=== PATIENT | female | born 1990 | race Caucasian/White ===

== ENCOUNTER 2016-06-24 22:10 | Emergency (ER) | payer SELFPAY ==
[~2016-06-24] VITALS: Ht 170.2 cm; Wt 125.2 kg
[2016-06-24 22:10] VITALS: Ht 170.2 cm; Wt 125.2 kg
[~2016-06-24 22:10] MED LIST: DESO1TAB4 PO; FLUO20CA30 PO
--- OUTSIDE RECORDS SUMMARY | 2016-06-24 22:13 | XMS REPORT | Referral Summary ---
Author Author [facility] Organization [facility] Address Unknown Phone Unavailable Care Team Providers Care Maintenance Journeyman Name Role Phone Torrie Silvestre Primary Care Physician [phone] Encounter [facility] [id number] Date(s): 11/30/14 - 11/30/14 [address] [facility] [address] [facility] [address] [place], [place] [address] Discharge Diagnosis: Chronic daily headache Discharge Disposition: 01-Home or Self Care Attending Physician: Juan Jose Correa MD Admitting Physician: Juan Jose Correa MD Referring Physician: Buffy Silvestre MD Vital Signs Most recent to 1 oldest [Reference Range]: Peripheral Pulse 80 bpm Rate [60-100 bpm] (11/30/14 12:54 PM) Blood Pressure 122/88 mmHg [90-140/60-90 mmHg] (11/30/14 12:54 PM) Problem List Condition Effective Dates Status Health Status Informant Anemia(Confirmed) Active Anxiety(Confirmed) Active Depression(Confirmed Active ) Ear Active infection(Confirmed) Migraine Active headache(Confirmed) Overweight(Confirmed Active ) Peptic Active ulcer(Confirmed) Allergies, Adverse Reactions, Alerts No Known Medication Allergies Medications Apri 0.15 mg-0.03 mg oral tablet 1 tabs, Oral, Daily, # 28 tabs, 0 Refill(s), other reason (Rx) Start Date: 06/28/14 Status: Ordered Diamox Sequels 500 mg oral capsule, extended release 500 mg 1 caps, Oral, BID, # 60 caps, 11 Refill(s), Pharmacy: [id number], 1 caps Oral BID,x30 days Start Date: 12/13/14 Stop Date: 12/08/15 Status: Ordered FLUoxetine 20 mg oral capsule See Instructions, 1 caps Oral Daily,Instr:New order to replace previous order., # 30 caps, 2 Refill(s), eRx: [id number], 1 caps Oral Daily,Instr: New order to replace previous order. Start Date: 08/08/14 Status: Ordered Results No data available for this section Immunizations Vaccine Date Refusal Reason tetanus/diphth/pertuss (Tdap) adult/adol 10/19/10 hepatitis B pediatric vaccine 02/13/98 hepatitis B pediatric vaccine 09/14/97 hepatitis B pediatric vaccine 09/24/95 influenza virus vaccine, live 12/02/12 influenza virus vaccine, live 03/25/12 measles/mumps/rubella virus vaccine 09/04/93 measles/mumps/rubella virus vaccine 02/04/90 varicella virus vaccine 09/14/97 Procedures Procedure Date Related Diagnosis Body Site Tonsillectomy [place] teeth removed Social History Social History Type Response Smoking Status Never smoker Assessment and Plan Extracted from: Title: Office Visit Note Author: Reece Pryor MD Date: 11/30/14 Assessment/Plan Chronic daily headache 24 yo RH female with h/o episodic headaches since childhood presents for worsening headaches into chronic daily headache since apr with associated blurry vision, diplopia and wave sensation in R ear. Patient may have a multifactorial component of headaches, chronic migraines, IIH +/- medication overuse headaches. Plan: -LP for opening pressure. Discussed with patient potential adverse effects of procedure including but not limited to post-lp headache, infection, hemorrhage, herniation. -Start Migrelief bid for now for chronic migraines. Will decide on further Preventive headache medication pending LP results - I emphasized on the importance of good sleep, preventing triggers, not missing meals,avoid drastic changes in schedule, regular exercise, weight loss and healthy diet. -May consider sleep study in the future. Ordered: Cell Count w/ Diff CSF Glucose CSF Protein CSF XR Fluoro Guidance Needle Loc Spine
--- OUTSIDE RECORDS SUMMARY | 2016-06-24 22:13 | XMS REPORT | Referral Summary ---
Author Organization Unknown Address Unknown Phone Unavailable Care Team Providers Care Systems Planner Name Role Phone Torrie Silvestre Primary Care Physician [phone] Encounter [facility] Date(s): 06/28/14 - 06/28/14 [facility] [address] [place] [address] [place] [id number] Discharge Diagnosis: Fatigue Discharge Diagnosis: Headache Discharge Disposition: Home or Self Care Attending Physician: Ronit Chen APRN Admitting Physician: Ronit Chen APRN Vital Signs Most recent to 1 oldest [Reference Range]: Temperature Tympanic 37.1 degC [36.6-38.1 degC] (06/28/14 10:18 AM) Peripheral Pulse 72 bpm Rate [60-100 bpm] (06/28/14 10:18 AM) Blood Pressure 134/78 mmHg [90-140/60-90 mmHg] (06/28/14 10:18 AM) Problem List Condition Effective Dates Status Health Status Informant Anemia(Confirmed) Active Anxiety(Confirmed) Active Depression(Confirmed Active ) Ear Active infection(Confirmed) Migraine Active headache(Confirmed) Overweight(Confirmed Active ) Peptic Active ulcer(Confirmed) Allergies, Adverse Reactions, Alerts No Known Medication Allergies Medications Apri 0.15 mg-0.03 mg oral tablet 1 tabs, Oral, Daily, # 28 tabs, 0 Refill(s), other reason (Rx) Start Date: 06/28/14 Status: Ordered busPIRone 15 mg oral tablet 1 tabs, Oral, BID, # 60 tabs, 0 Refill(s), other reason (Rx) Start Date: 06/28/14 Status: Ordered FLUoxetine 20 mg oral tablet See Instructions, 1/2 tabs Oral Daily FOR 1 WEEK THEN 1 TABLET ORAL DAILY, # 30 tabs, 1 Refill(s), Pharmacy: [facility] #[id number], 1/2 tabs Oral Daily FOR 1 WEEK THEN 1 TABLET ORAL DAILY Special Instructions: 1/2 tabs Oral Daily FOR 1 WEEK THEN 1 TABLET ORAL DAILY Start Date: 06/28/14 Status: Ordered Results No data available for this section Immunizations Vaccine Date Refusal Reason tetanus/diphth/pertuss (Tdap) adult/adol 10/19/10 hepatitis B pediatric vaccine 02/13/98 hepatitis B pediatric vaccine 09/14/97 hepatitis B pediatric vaccine 09/24/95 influenza virus vaccine, live 12/02/12 influenza virus vaccine, live 03/25/12 measles/mumps/rubella virus vaccine 09/04/93 measles/mumps/rubella virus vaccine 02/04/90 varicella virus vaccine 09/14/97 Procedures No data available for this section Social History Social History Type Response Smoking Status Never smoker Assessment and Plan No data available for this section
--- OUTSIDE RECORDS SUMMARY | 2016-06-24 22:13 | XMS REPORT | Referral Summary ---
Author Author [facility] Organization [facility] Address Unknown Phone Unavailable Care Team Providers Care Master Automotive Technician Name Role Phone Torrie Silvestre Primary Care Physician [phone] Encounter [facility] [id number] Date(s): 07/13/14 - 07/13/14 [facility] [address] [place], [place] [address] Discharge Diagnosis: ACUTE SINUSITIS, UNSPECIFIED Discharge Diagnosis: Cyst of maxillary sinus Discharge Diagnosis: Family history of colorectal cancer Discharge Diagnosis: Stomatitis and mucositis, unspecified Discharge Diagnosis: Pulsatile tinnitus Discharge Diagnosis: Blurred vision Discharge Disposition: 01-Home or Self Care Attending Physician: Zak Anderson MD Admitting Physician: Zak Anderson MD Referring Physician: Buffy Silvestre MD Vital Signs No data available for this section Problem List Condition Effective Dates Status Health [...] BID, # 60 caps, 11 Refill(s), Pharmacy: [id number], 1 caps Oral BID,x30 days Start Date: 12/13/14 Stop Date: 12/08/15 Status: Ordered FLUoxetine 20 mg oral capsule See Instructions, 1 caps Oral Daily,Instr:New order to replace previous order., # 30 caps, 2 Refill(s), eRx: [id number], 1 caps Oral Daily,Instr: New [...] Procedures Procedure Date Related Diagnosis Body Site Nasal endoscopy, diagnostic, unilateral or 07/13/14 bilateral (separate procedure) Tonsillectomy [place] teeth removed Social History Social History Type Response Smoking Status Never smoker Assessment and Plan No data available for this section
--- OUTSIDE RECORDS SUMMARY | 2016-06-24 22:13 | XMS REPORT | Referral Summary ---
Author Author [facility] Organization [facility] Address Unknown Phone Unavailable Care Team Providers Care Tube Drawing Supervisor Name Role Phone Torrie Silvestre Primary Care Physician [phone] Encounter [facility] [id number] Date(s): 07/13/14 - 07/13/14 [facility] [address] [address] [place], [place] [address] Discharge Diagnosis: ACUTE SINUSITIS, [...] BID, # 60 caps, 11 Refill(s), Pharmacy: [id number], 1 caps Oral BID,x30 days Start Date: 12/13/14 Stop Date: 12/08/15 Status: Ordered FLUoxetine 20 mg oral capsule See Instructions, 1 caps Oral Daily,Instr:New order to replace previous order., # 30 caps, 2 Refill(s), [facility]Rx: [facility], 1 caps Oral Daily,Instr: New [...] unilateral or 07/13/14 bilateral (separate procedure) Tonsillectomy [place] teeth removed Social History Social History Type Response Smoking Status Never smoker Assessment and Plan No data available for this section
--- OUTSIDE RECORDS SUMMARY | 2016-06-24 22:13 | XMS REPORT | Referral Summary ---
Author Author [facility] Organization [facility] Address Unknown Phone Unavailable Care Team Providers Care Lowerator Operator Name Role Phone Torrie Silvestre Primary Care Physician [phone] Encounter [facility] [id number] Date(s): 11/30/14 - 11/30/[address] [facility] [address] [address] [facility] [address] [place], [place] [address] Discharge Diagnosis: Chronic daily headache Discharge [...] 06/28/14 Status: Ordered FLUoxetine 20 mg oral capsule See Instructions, 1 caps Oral Daily,Instr:New order to replace previous order., # 30 caps, 2 Refill(s), eRx: [facility], 1 caps Oral Daily,Instr: New order to [...] Procedure Date Related Diagnosis Body Site Tonsillectomy [place] teeth removed Social History Social History Type [...]
--- OUTSIDE RECORDS SUMMARY | 2016-06-24 22:13 | XMS REPORT | Referral Summary ---
Author Author [facility] [place] Organization [facility] [place], [facility] Address Unknown Phone Unavailable Care Team Providers Care Human Factors Engineer Name Role Phone Torrie Silvestre Primary Care Physician [phone] Encounter Date(s): 07/14/14 - 07/14/14 [facility] [place], [facility] [address] [place] [address]- Discharge Diagnosis: Anxiety Discharge Diagnosis: TINNITUS, UNSPECIFIED Discharge Diagnosis: PCOS (polycystic ovarian syndrome) Discharge Diagnosis: Headache Discharge Disposition: 01-Home or Self Care Attending Physician: Ronit Chen APRN Admitting Physician: Ronit Chen APRN Vital Signs Most recent to 1 oldest [Reference Range]: Temperature Tympanic 37.2 degC [36.6-38.1 degC] (07/14/14 9:28 AM) Peripheral Pulse 78 bpm Rate [60-100 bpm] (07/14/14 9:28 AM) Respiratory Rate 17 br/min [14-20 br/min] (07/14/14 9:28 AM) Blood Pressure 124/74 mmHg [90-140/60-90 mmHg] (07/14/14 9:28 AM) Problem List Condition Effective Dates Status [...] BID, # 60 caps, 11 Refill(s), Pharmacy: [facility], 1 caps Oral BID,x30 days Start Date: 12/13/14 Stop Date: 12/08/15 Status: Ordered FLUoxetine 20 mg oral capsule See Instructions, 1 caps Oral Daily,Instr:New order to replace previous order., # 30 caps, 2 Refill(s), eRx: [id number], 1 caps Oral Daily,Instr: New [...] Procedure Date Related Diagnosis Body Site Tonsillectomy [place] teeth removed Social History Social History Type Response Smoking Status Never smoker Assessment and Plan Extracted from: Title: Office Visit Note Author: Ronit Chen APRN Date: 07/14/14 Assessment/Plan 1.Headache Appt with neurology for further eval. Please sched an eye appt. 2.PCOS (polycystic ovarian syndrome) start metformin- once daily then increase to BID as ordered. Anxiety May take buspar in fuad. TINNITUS, UNSPECIFIED R carotid doppler. Orders: US Carotid Duplex Right
[2016-06-24] MEDS ORDERED: IBUP-1724 PO (22:55)
--- NOTE | 2016-06-24 23:00 | NUR ---
Provider Dr. Sage in room talking with patient
[2016-06-24] MEDS ORDERED: DESO1TAB38 PO (23:07)
[2016-06-24] MEDS ORDERED: HYDR-4246 PO (23:10)
--- NOTE | 2016-06-24 23:11 | ERPDOC ---
Departure Disposition Decision Date: Jun 24, 2016 Disposition Decision Time: 23:09 Disposition: 01 DISCHARGED HOME, SELF-CARE Impression Impression Impression: Primary Impression: Headache Qualified Codes: R51 - Headache Severity: Mild Condition: Improved Seen By: Physician only Referrals: [facility] 2 Days Patient Instructions: General Headache (ED) Problems/Meds/Labs Reviewed?: Yes Medications reviewed and manag: Yes Follow up care ordered?: Yes Mental Status: Alert, Oriented Scripts Hydrocodone/Acetaminophen ([place] 5-325 Tablet) 5-325 Tablet 1 TAB PO Q4HR Y for PAIN for 3 Days, #18 TAB 0 Refills Prov: CHRIS GRIFFITHS DO 06/24/16 HPI - Headache General Chief Complaint: Headache Stated Complaint: VISIONS ISSUES,HEAD PAIN Time Seen by Provider: 22:51 Source: patient Exam Limitations: no limitations HPI - Headache Initial Comments 25-year-old female with a long-standing history of chronic headaches and pseudotumor cerebri presents to the emergency department with a chief complaint of a typical headache. Patient noted onset of headache approximately 7-10 days ago. Patient also notes that her vision was slightly blurry earlier today but has since resolved. Patient describes her pain as moderate. Pain is right- sided. There is no radiation. She notes that the pain improves with ibuprofen. No other complaints or associated symptoms. She was at home when her symptoms began. Symptoms have been persistent in nature since onset. No trauma or injury. Occurred At: home Onset: Gradual Allergies: Coded Allergies: NKDA (Verified Allergy, Unknown, 03/16/15) Past History Patient Medical History Problem List Updates: Pseudo tumor cerebri Past Medical History Female: other Hematologic: anemia Surgical History Denies Surgeries Family History Family History: Negative Social History Smoking Status: Never smoker Substance Use Type: does not use Alcohol Intake: none Review of Systems Constitutional Constitutional: DENIES: chills, fever Eyes General: DENIES: erythema, exudate Lids/Accessories: DENIES: erythema, swelling Vision: blurring (Resolved. ), DENIES: acuity ENMT Ears: DENIES: drainage, pain Hearing: DENIES: hearing loss Balance: DENIES: ataxia, falling to one side Sinuses: DENIES: congestion, pain Nose: DENIES: nosebleeds, pain Mouth/Throat: DENIES: painful swallowing, sore throat Teeth: DENIES: pain Jaw: DENIES: pain Cardiovascular Cardiac: DENIES: chest pain, dyspnea on exertion Rhythm/Rate: DENIES: irregular beat, palpitations Vascular: DENIES: pedal edema, unilateral swelling Pulmonary Respiratory: DENIES: cough, dyspnea, pleuritic chest pain, sputum GI Upper Abdomen: DENIES: nausea, pain, vomiting Lower Abdomen: DENIES: diarrhea, pain General: DENIES: dysuria, frequency Musculoskeletal General: DENIES: joint pain, tenderness Integumentary Skin: DENIES: itching, rash Neurological General: headache (typical), DENIES: numbness, weakness Psychiatric Psychiatric: DENIES: emotional instability, suicidal ideation/attempt Endocrine Endocrine: DENIES: polydipsia, polyphagia Hematologic/Lymphatic Hematologic/Lymphatic: DENIES: frequent nosebleeds, lymphadenopathy Allergic/Immunological Allergic/Immunoligical: DENIES: allergic reactions, hives Physical Exam General General Nourishment: well nourished, well developed, appears stated age, no acute distress, adult General Body Habitus: well groomed Vitals and Pain First Documented Vital Signs Date Time Temp Pulse Resp B/P Pulse Ox O2 Delivery O2 Flow Rate FiO2 06/24/16 22:10 99.9 98 20 145/90 99 Room Air Weight: Kilograms: 125.200 Height (feet): 5 Height (inches): 7.00 Triage Pain Scale: RN VS reviewed by Provider: Yes Normal Exams: Head: Normocephalic w/o trauma Eyes: Pupils are PERRLA w/ EOMI, No scleral icterus, irritation, or foreign bodies noted ENMT: No facial trauma, nasal exudates, pharyngeal erythema, or exudates are noted Dental: No fractured, loose, or missing teeth noted Neck: Full range of motion, without adenopathy, JVD, bruits or thyromegaly Chest/Resp: Clear all carbajal, with good airflow, and symmetry bilaterally CV: Regular rate and rhythm, without murmur or gallop, Pulses 2+ all extremities, capillary refill, <2 seconds all ext., no pedal edema noted Abdomen: Bowel sounds positive, soft, non-tender, non-distended, no hepatosplenomegaly, masses or bruits noted Lymphatic: No lymphadenopathy, or lymphedema noted Musculoskeletal: No tenderness, or deformity noted, good range of motion, all extremities Integumentary: No rashes, hives, or bruising noted, hair and nails, without abnormality Neurologic: Patient is alert, and oriented, cranial nerves, motor/sensory/ cerebellar, exams w/o gross deficits, to observation Psychiatric: Patient exhibits, appropriate attention, emotion and affect Neck (brief) Neck: NOT FOUND: nuchal rigidity, tenderness Neurologic (brief) Comments Alert and oriented x 4. CN 2 -12 intact. Sensation intact. Strength normal. Gait normal. Absent Babinski bilaterally. Normal speech. Normal motor. Normal coordination. Reflexes 2/4 in all extremities. No focal neurologic deficit. Differential Diagnoses Considering: Headache, Headache - Migraine, Headache - Tension/Muscle, Other ( Psuedo tumor cerebri) Progress Progress Progress After she reaches the emergency department, the patient declines recommended laboratory evaluation/CT scan of the head. Patient declines offered analgesic pain medication. Patient states that she would just like to return home at this time and follow-up with her physician. Patient is counseled regarding the risks versus benefit of this but does not change her mind. Patient is discharged home in accordance with her wishes. She is to follow up as instructed. She is to return to the emergency Department if her condition worsens or changes in any manner. She is to follow up as directed. CHRIS GRIFFITHS DO Jun 24, 2016 23:11
[2016-06-24 23:15] VITALS: BP 145/90; PULSE 98; RESP 20; TEMP 99.9; O2SAT 99
== END 2016-06-24 23:15 | disposition home or self-care (01) ==
LOC: ED 22:10
DX: R51 Headache (principal)

== ENCOUNTER → 2016-07-11 | Outpatient (CLI) | payer BC ==
[~2016-07-11] MED LIST changes: +DESO1TAB38 PO; -DESO1TAB4 PO; +HYDR-4246 PO; +IBUP-1724 PO
--- NOTE | 2016-07-11 15:11 | DI ---
Indication: ITS.REASON: R51 HEADACHE PROCEDURE: CT HEAD W/O CONTRAST: Encounter: Initial Comparison: None Technique: Axial CT images through the head were performed without contrast. Iterative Reconstruction dose reducing technique was utilized. FINDINGS: The ventricles are of normal size, shape, and configuration for the patient's age. There is no evidence of acute intracranial hemorrhage, midline displacement, or mass effect. The CT attenuation of the brain parenchyma is normal within the cerebellum, brain stem, and cerebral hemispheres. The tympanic cavities and mastoid air cells are free of appreciable disease. There are no definite fractures of the skull base, calvarium, or visualized portion of the midface. Mucus retention cysts in the maxillary sinuses. IMPRESSION: No CT evidence of acute intracranial abnormality. .
== END ==
LOC: IMA 14:40
PROVIDERS: ATTEND Family Medicine
DX: R51 Headache (principal)